=== PATIENT | female | born 1985 | race Caucasian/White ===

== ENCOUNTER 2020-11-24 10:30 | Outpatient (CLI) | payer OTHER, SELFPAY ==
--- NOTE | ~2020-11-24 | US_ITS ---
EXAMINATION: US OB <= 14 weeks fetus DATE: 11/24/2020 11:26 INDICATION: Spotting in . First trimester. TECHNIQUE: Real-time transabdominal pelvic ultrasound was performed. COMPARISON: None. FINDINGS: The uterus measures 9.8 x 7.2 x 6.4 cm. There is an intrauterine gestational sac. A yolk sac is ident ified. The crown rump length measures 2.2 cm, which correlates with an estimated gestational a ge of 8 weeks and 6 day(s) (+/-) 6 day(s). heart motion is identified measuring 168 beats per m inute (bpm) by M-mode Doppler. There is a 1.8 x 1.3 x 1.0 cm subchorionic hematoma. The right ovary m easures 4.7 x 3.5 x 3.5 cm. There is a 3.1 cm hypoechoic and anechoic mass in right ovary, likely a c orpus luteum cyst. The left ovary measures 2.4 x 1.8 x 1.7 cm. There is no free fluid in the pelvis. IMPRESSION: 1. Single live intrauterine gestation with estimated date of delivery of 06/30/2021. 2. Small subchorionic hematoma. Reviewed, dictated and finalized at location A. IMPRESSION: 1. Single live intrauterine gestation with estimated date of delivery of 2021. 2. Small subchorionic hematoma.
[2020-11-24] MEDS: RHO(D) IMMUNE GLOBULIN 300 MCG/2 ML SYRINGE IM (15:21)
== END 2020-11-24 10:31 | disposition home or self-care (01) ==
PROVIDERS: PCP Physician Assistant; Visit Provider Obstetrics & Gynecology Gynecology
DX: O26.851 Spotting complicating pregnancy, first trimester (principal); Z3A.00 Weeks of gestation of pregnancy not specified
CPT/HCPCS: 36415; 76801; 85461; 90384; 96372; J2790

== ENCOUNTER 2020-12-06 07:31 | Outpatient (CLI) | payer OTHER, SELFPAY ==
[2020-12-06 07:57] LABS: Hematocrit 34.6 % (37.0-47.0); Hemoglobin 11.3 g/dL (12.0-15.0); Mean Corpuscular HGB Conc 32.7 g/dl (32-36); Mean Corpuscular Volume 82.8 fl (80-100); Mean Platelet Volume 10.8 fl (7.4-10.4); Platelet Count Result 317 k/mm3 (150-375); Red Blood Count 4.18 M/mm3 (4.2-5.4); Red Cell Distribution Width 14.4 % (11.5-14.5); White Blood Count 7.4 K/mm3 (4.5-10.0)
[2020-12-06 08:16] LABS: Alanine Aminotransferase 21 U/L (4-35); Albumin Level 4.2 g/dL (3.5-5.1); Alkaline Phosphatase 63 U/L (38-126); Anion Gap 10 mmol/L (8-16); Aspartate Amino Transferase 23 U/L (14-36); Bilirubin,Total 0.5 mg/dL (0.2-1.3); Blood Urea Nitrogen 7 mg/dL (7-17); Carbon Dioxide 30 mmol/L (22-30); Chloride 97 mmol/L (98-107); Estimated Glomerular Filt Rate > 60; Glucose 91 mg/dL (65-110); Potassium 2.1 mmol/L (3.4-5.0); Sodium 137 mmol/L (137-145); Uric Acid 3.5 mg/dL (2.5-7.5)
== END 2020-12-06 07:32 | disposition home or self-care (01) ==
PROVIDERS: PCP Physician Assistant; Visit Provider Obstetrics & Gynecology
DX: O10.011 Pre-existing essential hypertension complicating pregnancy, first trimester (principal); Z3A.00 Weeks of gestation of pregnancy not specified
CPT/HCPCS: 36415; 80053; 84550; 85027

== ENCOUNTER 2020-12-06 13:20 | Observation (INO) | payer OTHER, SELFPAY ==
--- NOTE | 2020-12-06 13:30 | OBADM ---
This patient, Sonia Machado, admitted to the OB room [facility] for observation. Patient/family oriented to hospital policies and general routines including ID bracelet, bed and alarms, visiting hours, pain management, procedures, bathroom and other care routines, personal items, smoking policy, room service/diet, and visiting hours. Patient/Family are encouraged to report perceived risks to care and to ask questions if they do not understand what they are told or what they should do.
[2020-12-06] MEDS: DEXTROSE 5%/LACTATED RINGERS 1,000 ML 150 ML IV CONT (14:01)
[2020-12-06 14:14] VITALS: BMI 37.7
[2020-12-06 14:18] LABS: Add Urine Microscopic? YES; Appearance Urine Cloudy (Clear); Bacteria Urine 4+ /hpf; Bilirubin Urine Negative (Negative); Blood Urine Negative (Negative); Color Urine Yellow (Yellow); Glucose Urine UA Negative (Negative); Ketones Urine Negative (Negative); Leukocyte Esterase Ur Trace LEU/UL (NEGATIVE); Nitrate Urine Negative (Negative); Protein Urine Negative (Negative); RBC Urine 0-2 /hpf (0-2); Specific Grav Ur 1.009 (1.001-1.035); Squamous Epithelial Cell Urine Many /hpf (Few); Transitional Epi Cells Urine Rare /hpf (None Seen); Urobilinogen Urine Negative mg/dL (<2.0)
[2020-12-06 15:29] VITALS: BP 142/75; PULSE 77
[2020-12-06 15:30] VITALS: TEMP 36.7
[2020-12-06 15:45] VITALS: BP 138/69; PULSE 72
--- NOTE | 2020-12-06 17:50 | PC.NURSE ---
Called Dr. Duarte with pt status. Lab results and BPs given. September D/C home after potassium is infused.
--- NOTE | 2020-12-22 11:57 | PM.OBTRLD ---
OB - Triage/Final Diagnosis Visit Information Comments/Additional reasons for admission: I have assessed the risk for this patient, Sonia Machado, and determined that she would benefit from observation care. Evaluation Laboratory results: Laboratory Tests 12/06/20 14:06 Urine Color Yellow Urine Appearance Cloudy H Urine pH 7.0 Ur Specific [place] 1.009 Urine Protein Negative Urine Glucose (UA) Negative Urine Ketones Negative Ur Blood (Man) Negative Urine Nitrate Negative Urine Bilirubin Negative Urine Urobilinogen Negative Ur Leukocyte Esterase Trace H Urine RBC 0-2 Urine WBC 4-6 H Ur Squamous Epith Cells Many H Ur Transition Epith Cell Rare Urine Bacteria 4+ H Final Diagnosis (1) Acute hypokalemia: Code(s): E87.6 - Hypokalemia Status: Acute
== END 2020-12-06 18:32 | disposition home or self-care (01) ==
PROVIDERS: Admitting Provider Obstetrics & Gynecology; PCP Physician Assistant; Visit Provider Obstetrics & Gynecology
DX: O99.891 Other specified diseases and conditions complicating pregnancy (principal); E87.6 Hypokalemia; Z3A.10 10 weeks gestation of pregnancy
CPT/HCPCS: 36415; 80053; 81001; 84550; 85027; 96374; G0378; G0379; J3480; J7121

== ENCOUNTER 2020-12-09 07:53 | Outpatient (CLI) | payer OTHER, SELFPAY ==
[2020-12-09 11:05] LABS: Collection Time Urine 24 HOURS
[2020-12-09 11:13] LABS: Creatinine Urine 43.8 mg/dL; Patient Weight 190 Lbs
[2020-12-09 11:24] LABS: Total Volume 24 Hour Urine 3400 ml
[2020-12-09 11:27] LABS: Creatinine Clearance Urine 149.6 ml/min (75-125)
[2020-12-09 12:05] LABS: Total Protein Urine 24 Hr 347 mg/24hr (0-149); Total Protein Urine Random 10.2 mg/dL (0.0-11.9)
== END 2020-12-09 07:54 | disposition home or self-care (01) ==
PROVIDERS: PCP Physician Assistant; Visit Provider Obstetrics & Gynecology
DX: O10.011 Pre-existing essential hypertension complicating pregnancy, first trimester (principal); Z3A.10 10 weeks gestation of pregnancy
CPT/HCPCS: 81050; 82575; 84156

== ENCOUNTER 2021-01-21 07:12 | Outpatient (CLI) | payer OTHER, SELFPAY ==
[2021-01-21 07:59] LABS: Basophils Percent Auto 0.2 % (0.2-1.2); Eosinophils Absolute Auto 0.5 K/mm3 (0-0.3); Eosinophils Percent Auto 4.7 % (0-4.4); Hematocrit 33.7 % (37.0-47.0); Hemoglobin 11.3 g/dL (12.0-15.0); Immature Granulocyte Absolute 0.04 K/mm3 (0.00-0.031); Immature Granulocyte Percent A 0.4 % (0-0.5); Lymphocytes Absolute Auto 2.58 K/mm3 (0.9-3.2); Lymphocytes Percent Auto 26.1 % (18.3-44.2); Mean Corpuscular HGB Conc 33.5 g/dl (32-36); Mean Corpuscular Hemoglobin 28.9 pg (26-34); Mean Corpuscular Volume 86.2 fl (80-100); Mean Platelet Volume 11.2 fl (7.4-10.4); Monocytes Absolute Auto 0.5 K/mm3 (0.1-0.6); Monocytes Percent Auto 5.5 % (2.6-8.5); Neutrophils Absolute Auto 6.2 K/mm3 (1.3-6.7); Neutrophils Percent Auto 63.1 % (45.5-73.1); Platelet Count Result 322 k/mm3 (150-375); Red Blood Count 3.91 M/mm3 (4.2-5.4); Red Cell Distribution Width 14.3 % (11.5-14.5); White Blood Count 9.9 K/mm3 (4.5-10.0)
[2021-01-21 09:04] LABS: Hemoglobin A1C 4.8 % (<5.7)
[2021-01-21 09:09] LABS: Anion Gap 7 mmol/L (8-16); Blood Urea Nitrogen 9 mg/dL (7-17); Carbon Dioxide 28 mmol/L (22-30); Chloride 101 mmol/L (98-107); Estimated Glomerular Filt Rate > 60; Glucose 89 mg/dL (65-110); HIV 1/2 Ab P24 Ag Result Negative (Negative); Potassium 2.3 mmol/L (3.4-5.0); Sodium 136 mmol/L (137-145)
[2021-01-21 09:48] LABS: Vitamin D 25 Hydroxy 18.2 ng/mL
[2021-01-21 10:18] LABS: Hepatitis B Surface Antigen Negative (Negative)
[2021-01-23 10:40] LABS: Rapid Plasma Reagin Non-Reactive (NonReactive)
== END 2021-01-21 07:13 | disposition home or self-care (01) ==
PROVIDERS: PCP Physician Assistant; Visit Provider Obstetrics & Gynecology
DX: Z34.90 Encounter for supervision of normal pregnancy, unspecified, unspecified trimester (principal); Z3A.00 Weeks of gestation of pregnancy not specified
CPT/HCPCS: 36415; 80048; 82306; 83036; 85025; 86592; 86703; 86762; 86850; 86880; 86900; 86901; 86902; 87340; G0432

== ENCOUNTER 2021-01-29 13:07 | Outpatient (CLI) | payer OTHER, SELFPAY ==
[2021-01-29 13:59] LABS: Potassium 2.7 mmol/L (3.4-5.0)
[2021-01-30 08:52] LABS: Rapid Plasma Reagin Non-Reactive (NonReactive)
== END 2021-01-29 13:08 | disposition home or self-care (01) ==
LOC: ANHLAB 13:09
PROVIDERS: PCP Physician Assistant; Visit Provider Obstetrics & Gynecology Gynecology
DX: Z34.92 Encounter for supervision of normal pregnancy, unspecified, second trimester (principal); Z3A.18 18 weeks gestation of pregnancy
CPT/HCPCS: 36415; 84132; 86592

== ENCOUNTER 2021-02-19 11:01 | Outpatient (CLI) | payer OTHER, SELFPAY ==
[2021-02-19 12:07] LABS: Potassium 3.2 mmol/L (3.4-5.0)
== END 2021-02-19 11:02 | disposition home or self-care (01) ==
PROVIDERS: PCP Physician Assistant; Visit Provider Obstetrics & Gynecology
DX: E87.6 Hypokalemia (principal)
CPT/HCPCS: 36415; 84132

== ENCOUNTER 2021-03-12 11:51 | Outpatient (CLI) | payer OTHER, SELFPAY ==
[2021-03-12 12:51] LABS: Potassium 3.4 mmol/L (3.4-5.0)
== END 2021-03-12 11:52 | disposition home or self-care (01) ==
LOC: ANHLAB 11:53
PROVIDERS: PCP Physician Assistant; Visit Provider Obstetrics & Gynecology
DX: R79.89 Other specified abnormal findings of blood chemistry (principal)
CPT/HCPCS: 36415; 84132

== ENCOUNTER 2021-04-13 07:37 | Outpatient (RCR) | payer OTHER, SELFPAY ==
[2021-04-13 09:49] LABS: Hematocrit 35.4 % (37.0-47.0); Hemoglobin 11.7 g/dL (12.0-15.0)
[2021-04-13 09:58] LABS: Glucose 1 Hour PP 50gm Dose 146 mg/dL; Potassium 2.5 mmol/L (3.4-5.0)
[2021-04-13 10:09] LABS: Vitamin D 25 Hydroxy 32.5 ng/mL
[2021-04-13 10:32] LABS: HIV 1/2 Ab P24 Ag Result Negative (Negative)
[2021-04-13] MEDS: RHO(D) IMMUNE GLOBULIN 300 MCG/2 ML SYRINGE IM (18:59)
== END 2021-07-12 23:59 | disposition home or self-care (01) ==
LOC: ANHLAB 07:37
PROVIDERS: PCP Physician Assistant; Visit Provider Obstetrics & Gynecology
DX: Z29.13 Encounter for prophylactic Rho(D) immune globulin (principal); Z11.4 Encounter for screening for human immunodeficiency virus [HIV]; O36.0190 Maternal care for anti-D [Rh] antibodies, unspecified trimester, not applicable or unspecified; Z3A.00 Weeks of gestation of pregnancy not specified
CPT/HCPCS: 36415; 82306; 82947; 84132; 85014; 85018; 85461; 86703; 90384; 96372; G0432; J2790

== ENCOUNTER 2021-04-14 15:11 | Outpatient (CLI) | payer OTHER, SELFPAY ==
[2021-04-14 15:33] LABS: Potassium 3.5 mmol/L (3.4-5.0)
== END 2021-04-14 15:12 | disposition home or self-care (01) ==
PROVIDERS: PCP Physician Assistant; Visit Provider Obstetrics & Gynecology Gynecology
DX: O99.283 Endocrine, nutritional and metabolic diseases complicating pregnancy, third trimester (principal); E87.6 Hypokalemia
CPT/HCPCS: 36415; 84132